=== PATIENT | male | born 1975 | race Caucasian/White ===

== ENCOUNTER 2016-10-04 11:50 | Observation (INO) | payer BC ==
[2016-10-04] MEDS ORDERED: SODIUM CHLORIDE 0.9% 1,000 ML IV STA ×2 (13:19)
[2016-10-04] MEDS ORDERED: RX INFO: IV CONTRAST WAS GIVEN 1 EACH MISC MISCELLANE PRN (13:20)
[2016-10-04] MEDS ORDERED: MORPHINE SULFATE 4 MG/ML SYRINGE IV STA (13:21)
[2016-10-04] MEDS ORDERED: METOCLOPRAMIDE 5 MG/ML 2 ML VIAL IVP STA (13:21)
--- NOTE | 2016-10-04 13:28 | ED ---
General Adult HPI - General Chief complaint: Dizziness Stated complaint: DIZZINESS X 1 WEEK, HEADACHE Time Seen by Provider: 10/04/16 13:00 Source: patient, RN notes reviewed Mode of arrival: wheelchair Limitations: no limitations - History of Present Illness Initial comments: Patient is a pleasant 41-year-old male presenting to the emergency Department with headaches. Headaches have gradually progressed over the past week. Headaches have been waxing and waning. Patient has had 2 or 3 syncopal episodes over the past couple of days. Patient has associated dizziness. Discomfort is somewhat severe at times. 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 Patient did previously have a pinched nerve in his neck that he saw a chiropractor for and that did seem to help. Patient no longer has neck discomfort. No history of similar symptoms previously. - Related Data Home Medications Medication Instructions Recorded Confirmed Melatonin 3 mg PO HS PRN 10/04/16 10/04/16 Omeprazole 20 mg PO DAILY 10/04/16 10/04/16 Allergies Allergy/AdvReac Type Severity Reaction Status Date / Time aspirin Allergy Rash/Hives Verified 10/04/16 12:54 Review of Systems ROS Statement: Those systems with pertinent positive or pertinent negative responses have been documented in the HPI. ROS Other: All systems not noted in ROS Statement are negative. Constitutional: Denies: fever Eyes: Reports: other (Chronic visual problems, unchanged). Denies: eye pain ENT: Denies: ear pain Respiratory: Denies: cough, dyspnea Cardiovascular: Denies: chest pain, palpitations Endocrine: Denies: fatigue Gastrointestinal: Reports: nausea. Denies: abdominal pain, vomiting Genitourinary: Denies: dysuria Musculoskeletal: Denies: back pain Skin: Denies: rash Neurological: Reports: headache. Denies: weakness, numbness, paresthesias, confusion Past Medical History Past Medical History: No Reported History History of Any Multi-Drug Resistant Organisms: None Reported Past Surgical History: No Surgical Hx Reported Additional Past Surgical History / Comment(s): orbital reconstruction pneumothorax with chest tube placement Past Psychological History: Depression Smoking Status: Current every day smoker Past Alcohol Use History: None Reported Past Drug Use History: None Reported General Exam Limitations: no limitations General appearance: alert, in no apparent distress Head exam: Present: atraumatic Eye exam: Present: normal appearance, PERRL, EOMI. Absent: nystagmus ENT exam: Present: normal oropharynx Neck exam: Present: normal inspection. Absent: tenderness Respiratory exam: Present: normal lung sounds bilaterally Cardiovascular Exam: Present: regular rate, normal rhythm Expanded Peripheral pulses: 2+: Radial (R), Radial (L), Dorsalis Pedis (R), Dorsalis Pedis (L) GI/Abdominal exam: Present: soft. Absent: tenderness Extremities exam: Present: normal inspection. Absent: tenderness, pedal edema, calf tenderness Neurological exam: Present: alert, oriented X3, CN II-XII intact. Absent: motor sensory deficit Expanded Speech: Present: fluid speech Cranial nerves: EOM's Intact: Normal, Facial Sensation: Normal Cerebellar function: Finger to Nose: Normal Sensory exam: Upper Extremity Light Touch: Normal, Lower Extremity Light Touch: Normal Motor strength exam: RUE: 5, LUE: 5, RLE: 5, LLE: 5 Eye Response: (4) open spontaneously Motor Response: (6) obeys commands Verbal Response: (5) oriented Psychiatric exam: Present: normal affect, normal mood Skin exam: Absent: rash Course Vital Signs 10/04/16 12:18 Temperature 98.0 F Pulse Rate 77 Respiratory 16 Rate Blood Pressure 106/70 O2 Sat by Pulse 98 Oximetry EKG Findings - EKG Comments: EKG Findings:: Normal sinus rhythm at 60. Normal intervals. Normal axis. Normal QRS. No acute ST change. Medical Decision Making - Medical Decision Making Patient reexamined and improved. Symptoms are mild at this time. Secondary to headache and syncope patient will be admitted for neurology consult. Case discussed in detail with Dr. Ji, who will admit for hospital call. - Lab Data Result diagrams: 10/04/16 12:45 10/04/16 12:45 Lab Results 10/04/16 10/04/16 10/04/16 Range/Units 12:45 12:45 12:45 WBC 7.7 (3.8-10.6) k/uL RBC 4.93 (4.30-5.90) m/uL Hgb 16.2 (13.0-17.5) gm/dL Hct 48.5 (39.0-53.0) % MCV 98.4 (80.0-100.0) fL MCH 32.9 (25.0-35.0) pg MCHC 33.5 (31.0-37.0) g/dL RDW 12.3 (11.5-15.5) % Plt Count 220 (150-450) k/uL Neutrophils % 69 % Lymphocytes % 20 % Monocytes % 6 % Eosinophils % 3 % Basophils % 1 % Neutrophils # 5.3 (1.3-7.7) k/uL Lymphocytes # 1.5 (1.0-4.8) k/uL Monocytes # 0.4 (0-1.0) k/uL Eosinophils # 0.3 (0-0.7) k/uL Basophils # 0.1 (0-0.2) k/uL PT (9.0-12.0) sec INR (<1.1) APTT (22.0-30.0) sec Sodium 144 (137-145) mmol/L Potassium 4.8 (3.5-5.1) mmol/L Chloride 104 (98-107) mmol/L Carbon Dioxide 28 (22-30) mmol/L Anion Gap 12 mmol/L BUN 12 (9-20) mg/dL Creatinine 0.84 (0.66-1.25) mg/dL Est GFR (MDRD) Af Amer >60 (>60 ml/min/1.73 sqM) Est GFR (MDRD) Non-Af >60 (>60 ml/min/1.73 sqM) Glucose 84 (74-99) mg/dL Calcium 9.6 (8.4-10.2) mg/dL Magnesium 2.0 (1.6-2.3) mg/dL Total Bilirubin 0.5 (0.2-1.3) mg/dL AST 24 (17-59) U/L ALT 40 (21-72) U/L Alkaline Phosphatase 68 (38-126) U/L Total Creatine Kinase 60 (55-170) U/L CK-MB (CK-2) 0.4 (0.0-2.4) ng/mL CK-MB (CK-2) Rel Index 0.7 Troponin I <0.012 (0.000-0.034) ng/mL Total Protein 6.9 (6.3-8.2) g/dL Albumin 4.3 (3.5-5.0) g/dL Urine Color Urine Appearance (Clear) Urine pH (5.0-8.0) Ur Specific Chester (1.001-1.035) Urine Protein (Negative) Urine Glucose (UA) (Negative) Urine Ketones (Negative) Urine Blood (Negative) Urine Nitrate (Negative) Urine Bilirubin (Negative) Urine Urobilinogen (<2.0) mg/dL Ur Leukocyte Esterase (Negative) 10/04/16 10/04/16 Range/Units 12:45 14:35 WBC (3.8-10.6) k/uL RBC (4.30-5.90) m/uL Hgb (13.0-17.5) gm/dL Hct (39.0-53.0) % MCV (80.0-100.0) fL MCH (25.0-35.0) pg MCHC (31.0-37.0) g/dL RDW (11.5-15.5) % Plt Count (150-450) k/uL Neutrophils % % Lymphocytes % % Monocytes % % Eosinophils % % Basophils % % Neutrophils # (1.3-7.7) k/uL Lymphocytes # (1.0-4.8) k/uL Monocytes # (0-1.0) k/uL Eosinophils # (0-0.7) k/uL Basophils # (0-0.2) k/uL PT 10.0 (9.0-12.0) sec INR 1.0 (<1.1) APTT 24.9 (22.0-30.0) sec Sodium (137-145) mmol/L Potassium (3.5-5.1) mmol/L Chloride (98-107) mmol/L Carbon Dioxide (22-30) mmol/L Anion Gap mmol/L BUN (9-20) mg/dL Creatinine (0.66-1.25) mg/dL Est GFR (MDRD) Af Amer (>60 ml/min/1.73 sqM) Est GFR (MDRD) Non-Af (>60 ml/min/1.73 sqM) Glucose (74-99) mg/dL Calcium (8.4-10.2) mg/dL Magnesium (1.6-2.3) mg/dL Total Bilirubin (0.2-1.3) mg/dL AST (17-59) U/L ALT (21-72) U/L Alkaline Phosphatase (38-126) U/L Total Creatine Kinase (55-170) U/L CK-MB (CK-2) (0.0-2.4) ng/mL CK-MB (CK-2) Rel Index Troponin I (0.000-0.034) ng/mL Total Protein (6.3-8.2) g/dL Albumin (3.5-5.0) g/dL Urine Color Light Yellow Urine Appearance Clear (Clear) Urine pH 7.0 (5.0-8.0) Ur Specific [place] >1.050 H (1.001-1.035) Urine Protein Trace H (Negative) Urine Glucose (UA) Negative (Negative) Urine Ketones Negative (Negative) Urine Blood Negative (Negative) Urine Nitrate Negative (Negative) Urine Bilirubin Negative (Negative) Urine Urobilinogen <2.0 (<2.0) mg/dL Ur Leukocyte Esterase Negative (Negative) - Radiology Data Radiology results: image reviewed (Computed tomography scan of the brain shows old fractures right orbit. No acute abnormality. CTA of the brain and neck show no acute abdomen Dontae. Chest x-ray shows bronchitis vs asthma. No acute infiltrate.) Disposition Clinical Impression: Syncope, Headache Disposition: ADMITTED IP TO THIS HOSP
[2016-10-04 13:42] LABS: Basophils # (A) 0.1 k/uL (0-0.2); Basophils % (A) 1 %; CH 33.6; CHCM 34.3; Eosinophils # (A) 0.3 k/uL (0-0.7); Eosinophils % (A) 3 %; HCT 48.5 % (39.0-53.0); HGB 16.2 gm/dL (13.0-17.5); Luc # (Auto) 0.14; Luc % (Auto) 2; Lymphocytes # (A) 1.5 k/uL (1.0-4.8); Lymphocytes % (A) 20 %; MCH 32.9 pg (25.0-35.0); MCHC 33.5 g/dL (31.0-37.0); MCV 98.4 fL (80.0-100.0); Mean Platelet Volume 6.6; Monocytes # (A) 0.4 k/uL (0-1.0); Monocytes % (A) 6 %; Neutrophils # (A) 5.3 k/uL (1.3-7.7); Neutrophils % (A) 69 %; RBC 4.93 m/uL (4.30-5.90); RDW 12.3 % (11.5-15.5); WBC 7.7 k/uL (3.8-10.6)
[2016-10-04 13:47] LABS: Partial Thromboplastin Time 24.9 sec (22.0-30.0)
[2016-10-04 13:52] LABS: ALT 40 U/L (21-72); AST 24 U/L (17-59); Alkaline Phosphatase 68 U/L (38-126); Anion Gap 12 mmol/L; Blood Urea Nitrogen 12 mg/dL (9-20); Calcium 9.6 mg/dL (8.4-10.2); Carbon Dioxide 28 mmol/L (22-30); Chloride 104 mmol/L (98-107); Glucose 84 mg/dL (74-99); Non-African American GFR(MDRD) >60 (>60 ml/min/1.73 sqM); Potassium 4.8 mmol/L (3.5-5.1); Sodium 144 mmol/L (137-145); Total Bilirubin 0.5 mg/dL (0.2-1.3); Total Protein 6.9 g/dL (6.3-8.2)
[2016-10-04 14:01] LABS: Creatine Kinase 60 U/L (55-170)
[2016-10-04 14:12] LABS: Creatine Kinase MB 0.4 ng/mL (0.0-2.4); Troponin I <0.012 ng/mL (0.000-0.034)
--- NOTE | 2016-10-04 14:13 | XR ---
EXAMINATION TYPE: XR chest 2V DATE OF EXAM: 10/04/2016 2:09 PM COMPARISON: None HISTORY: 41-year-old male with syncope and dizziness today TECHNIQUE: PA and lateral views FINDINGS: The cardiomediastinal silhouette, aorta, and pulmonary vasculature are within normal limits. There is pectus excavatum deformity. Mild peribronchial cuffing is noted. Otherwise, lungs and pleural spaces are clear. IMPRESSION: Peribronchial cuffing could represent bronchitis or chronic asthma. Otherwise, no acute process.
--- NOTE | 2016-10-04 14:39 | CT ---
EXAMINATION TYPE: CT brain wo con DATE OF EXAM: 10/04/2016 2:22 PM COMPARISON: 05/25/2011 HISTORY: 41-year-old male with syncope TECHNIQUE: Examination was done in axial plane without intravenous contrast. Coronal and sagittal reconstructio ns performed. CT DLP: 1111 mGycm Automated exposure control for dose reduction was used. FINDINGS: There is no evidence of acute intracranial hemorrhage, acute ischemic changes, mass, mass-effect, or extra-axial fluid collection. There is no effacement of cerebral sulci or basal subarachnoid cister ns. There is no hydrocephalus. There is no midline shift. Mei-white matter distinction is preserv ed. Old blowout fractures right orbit and additional chronic fractures posterior wall right maxillary sin us. IMPRESSION: No acute intracranial abnormality seen. Old trauma to the right orbit and right maxillary sinus.
--- NOTE | 2016-10-04 14:46 | CT ---
EXAMINATION TYPE: CT angio head neck DATE OF EXAM: 10/04/2016 2:37 PM COMPARISON: NONE HISTORY: 41-year-old male with syncope and headache, with dizziness CT DLP: 397.69 mGycm Automated exposure control for dose reduction was used. TECHNIQUE: CT of the head and neck performed with IV Contrast, patient injected with 65 ml mL of Omni paque 350. Coronal and sagittal reconstructions performed. 3-D reconstructions generated on a [employer] workstation. FINDINGS: NECK: Pleural parenchymal scarring at the apices and blebs. There is early takeoff of the left vertebral artery from the left subclavian artery. The left vertebr al artery is dominant and both vessels are patent throughout their course. Both common carotid arteries are patent. Both internal carotid arteries are widely patent. Head: The large intracranial vessels including the vertebral arteries, basilar arteries, and internal carot id arteries are patent. Both anterior and posterior circulations are patent. No aneurysmal changes identified. Dural venous sinuses appear patent. IMPRESSION: 1. NO CAROTID OR VERTEBRAL ARTERY STENOSIS. 2. NO LARGE VESSEL INTRACRANIAL ARTERIAL OCCLUSION, SIGNIFICANT STENOSIS, OR ANEURYSMAL CHANGE SEEN.
[2016-10-04 14:48] LABS: Appearance,Urine Clear (Clear); Bilirubin,Urine Negative (Negative); Glucose,Urine (UA) Negative (Negative); Ketones,Urine Negative (Negative); Leukocyte Esterase,Urine Negative (Negative); Nitrite,Urine Negative (Negative); Protein,Urine Trace (Negative); UA Billing (MACRO vs. MICRO) CHEM; Urobilinogen,Urine <2.0 mg/dL (<2.0)
[2016-10-04 14:59] LABS: Specific Gravity,Urine >1.050 (1.001-1.035)
[2016-10-04] MEDS ORDERED: NALOXONE 0.4 MG/ML 1 ML VIAL IV PRN (15:04)
[2016-10-04] MEDS: SODIUM CHLORIDE 0.9% 1,000 ML IV SCH (15:20)
[2016-10-04 17:11] VITALS: BMI 19.5
[2016-10-04] MEDS: ONDANSETRON 4 MG/2 ML VIAL IVP PRN (17:13)
[2016-10-04] MEDS: MORPHINE SULFATE 4 MG/ML SYRINGE IV PRN (19:50)
[2016-10-04] MEDS ORDERED: MELATONIN 3 MG TABLET PO PRN (21:11)
[2016-10-04] MEDS: NICOTINE 21MG/24HR PATCH TRANSDERM SCH (22:22)
[2016-10-04] MEDS: PANTOPRAZOLE 40 MG TABLET PO SCH (22:22)
[2016-10-05] MEDS: SODIUM CHLORIDE 0.9% 1,000 ML IV SCH ×2 (05:41→18:16)
[2016-10-05] MEDS: NICOTINE 21MG/24HR PATCH TRANSDERM SCH (09:54)
[2016-10-05] MEDS: PANTOPRAZOLE 40 MG TABLET PO SCH (09:54)
[2016-10-05] MEDS: MORPHINE SULFATE 4 MG/ML SYRINGE IV PRN (09:58)
[2016-10-05] MEDS: ONDANSETRON 4 MG/2 ML VIAL IVP PRN (10:00)
[2016-10-05 12:06] LABS: Glucose,Whole Blood 83 mg/dL (75-99)
[2016-10-05] MEDS: HYDROmorphone 1 MG/ML 1 ML SYRINGE IVP PRN (15:28)
[2016-10-05] MEDS ORDERED: ONDANSETRON 4 MG/2 ML VIAL IVP PRN (16:40)
--- NOTE | 2016-10-05 17:51 | MR ---
Brain MRI with and without contrast HISTORY: Headache and syncope Multiplanar multisequence and postcontrast images through the brain following 13 cc MultiHance IV. Correlation to CT brain second of October 2016 There is no restricted diffusion. No abnormal enhancement following contrast administration. The anisa us callosum, pituitary, and cervical medullary junction, cerebellopontine angles are normal. Posterio r orbit on the right shows abnormal configuration as noted on CT likely due to remote trauma. Scatter ed hyperintensities are present in the periventricular and subcortical white matter on inversion ant very and T2-weighted sequences, there are approximately 20-30 lesions present. IMPRESSION: Nonspecific white matter demyelination, correlate for migraine headaches, vasculitis, hyp ertension, multiple sclerosis in the appropriate clinical setting.
[2016-10-05] MEDS ORDERED: PROCHLORPERAZINE 10 MG TAB PO PRN (18:33)
--- NOTE | 2016-10-05 18:48 | P.CNNES ---
History of Present Illness Consult date: 10/05/16 Reason for Consult: Patient with headaches and syncope History of Present Illness: This patient is a 41-year-old right-handed white male who was admitted to the hospital with symptoms of severe headache and recent syncopal episodes. Patient was brought into the emergency room yesterday evening with symptoms of severe headache and recent syncopal episode at home. Patient apparently has been having increased symptoms of headaches involving both temporal and occipital regions of the head and neck region. The headaches were severe and this was one of his reasons to come to the emergency room yesterday. The headaches have been ongoing for the last week or so. He also has been having intermittent dizziness and vertigo. He states that the room spins around and he feels very off balance. According to his who was at bedside he had an episode in which she felt lightheaded and dizzy and near passing out but did not actually collapse. Apparently the patient himself describes 2-3 blackout spells. He had no warning and apparently fell to the ground with these episodes. The patient does have a history of having had right orbital surgery done years ago at [facility]. According to the patient a plastic plate was inserted. The patient was seen in the ER by Dr. Richards. He was sent for computed tomography scan of the brain which did show old fractures of the right orbit. No acute abnormality was noted on the CAT scan. There was old trauma to the right orbit and right maxillary sinus noted. The patient also underwent a CTA angiogram. This came back negative for any evidence of arterial stenosis and no evidence of aneurysm. The patient was fully admitted to the hospital. He was sent for MRI of the brain today. MRI of the brain fails to reveal any evidence of acute enhancing brain lesions or tumor. MRI does show some nonspecific white matter changes which may be related to vascular migraine headaches. The patient states he has been receiving some pain medication which does help but still has recurrent headache. 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 Patient states that he is still quite dizzy even when he ambulates to the bathroom. He does require holding onto the eubanks at times. He states that when he is laying in bed he still feels the room spins around and he does become vertiginous. He does experience nausea and vomiting symptoms with these spells as well. The patient has no previous history of seizures or previous syncopal episodes. He did undergo routine EEG today which was reviewed and is negative for any evidence of epileptic seizures. We reviewed the results of all of his neurological testing today with the patient. His clinical history suggesting may have a degree of vestibular neuronitis. We are recommending he be started on Antivert as well for this condition and monitor his response. Patient is now admitted and neurology has been consulted for further evaluation and recommendations. Review of Systems Constitutional: Denies chills, Denies fever Eyes: denies blurred vision, denies pain Ears, nose, mouth and throat: Reports vertigo, Denies headache, Denies sore throat Cardiovascular: Denies chest pain, Denies shortness of breath Respiratory: Denies cough Gastrointestinal: Denies abdominal pain, Denies diarrhea, Denies nausea, Denies vomiting Musculoskeletal: Denies myalgias Integumentary: Denies pruritus, Denies rash Neurological: Reports gait dysfunction, Reports headaches, Reports vertigo, Denies numbness, Denies weakness Psychiatric: Denies anxiety, Denies depression Endocrine: Denies fatigue, Denies weight change Past Medical History Past Medical History: No Reported History History of Any Multi-Drug Resistant Organisms: None Reported Past Surgical History: No Surgical Hx Reported Additional Past Surgical History / Comment(s): orbital reconstruction, pneumothorax with chest tube placement Past Anesthesia/Blood Transfusion Reactions: No Reported Reaction Past Psychological History: Depression Smoking Status: Current every day smoker Past Alcohol Use History: None Reported Past Drug Use History: None Reported, Marijuana Additional Drug Use History / Comment(s): pt has medical marijuana card. - Past Family History Mother Family Medical History: No Reported History Medications and Allergies Home Medications Medication Instructions Recorded Confirmed Type Melatonin 3 mg PO HS PRN 10/04/16 10/04/16 History Omeprazole 20 mg PO DAILY 10/04/16 10/04/16 History Allergies Allergy/AdvReac Type Severity Reaction Status Date / Time aspirin Allergy Rash/Hives Verified 10/04/16 12:54 Physical Examination - Vital Signs Vital Signs: Vital Signs Temp Pulse Pulse Pulse Resp BP BP 10/05/16 07:54 98.5 F 54 L 18 99/52 10/05/16 04:00 56 L 16 95/49 10/05/16 03:59 66 16 10/05/16 00:00 98.5 F 58 L 60 16 94/50 10/04/16 20:00 98 F 60 16 92/52 10/04/16 16:50 98.2 F 63 16 94/53 10/04/16 15:35 98.2 F 76 18 116/66 Pulse Ox 10/05/16 07:54 96 10/05/16 04:00 97 10/05/16 03:59 10/05/16 00:00 97 10/04/16 20:00 99 10/04/16 16:50 98 10/04/16 15:35 99 Intake and Output 10/04/16 10/05/16 10/05/16 22:59 06:59 14:59 Intake Total 118 1300 Balance 118 1300 Intake: IV 900 Sodium Chloride 0.9% 1, 900 000 ml @ 75 mls/hr IV . [id number] RADHA Rx#:[id number] Oral 118 400 Other: # Voids 4 1 Weight 63.503 kg - Constitutional General appearance: average body habitus - EENT EENT: PERRL, mucous membranes moist - Respiratory Respiratory: lungs clear, normal breath sounds - Cardiovascular Cardiovascular: regular rate, normal S1, normal S2 Extremities: no peripheral edema bilaterally - Gastrointestinal Gastrointestinal: normoactive bowel sounds - Integumentary Integumentary: normal - Neurologic Cranial nerve examination: PERRL, EOMI, VFF, V1/V2/V3 grossly intact, face symmetric, tongue midline, intact gag reflex, intact corneal reflex, normal palatal elevation Speech examination: intact Sensorimotor examination: intact Detailed motor examination: grossly full strength in all extremities Motor examination - right side: 5/5: biceps, triceps, wrist flexion, wrist extension, carpet cutter, hip flexors, knee extensors, dorsiflexion, toe extension (EHL) , plantarflexion Motor examination - left side: 5/5: biceps, triceps, wrist flexion, wrist extension, carpet cutter, hip flexors, knee extensors, dorsiflexion, toe extension (EHL) , plantarflexion Detailed sensory examination: intact Reflex and gait examination: intact Reflexes: 1+: ankle, bicep, knee, tricep - Musculoskeletal Musculoskeletal: no pain - Psychiatric Psychiatric: mood/affect appropriate, cooperative Results - Laboratory Findings CBC and BMP: 10/04/16 12:45 10/04/16 12:45 Assessment and Plan (1) Vestibular neuronitis Status: Acute Code(s): H81.20 - VESTIBULAR NEURONITIS, UNSPECIFIED EAR (2) Near syncope Status: Acute Code(s): R55 - SYNCOPE AND COLLAPSE (3) Recurrent headache Status: Acute Code(s): R51 - HEADACHE (4) Closed blow-out fracture of right orbit Status: Acute Code(s): S02.31XA - FRACTURE OF ORBITAL FLOOR, RIGHT SIDE, INIT Plan: This patient is a 41-year-old male initially admitted to Hospital yesterday with symptoms of dizziness and headache. He was seen in the emergency room by Dr. Richards. He underwent a computed tomography scan of the brain as well as a CTA angiogram. CAT scan of the brain revealed no acute intracranial abnormality. There was evidence of an old right orbital fracture and right maxillary sinusitis. He suffers only had a CTA angiogram which came back negative for any evidence of arterial occlusion or aneurysm. He was started on some analgesic pain medication admitted to Hospital. Today he underwent a routine EEG as he had symptoms of recurrent syncope. EEG was reviewed and is normal with no evidence of epileptic seizure focus. He underwent MRI of the brain with and without contrast which came back negative for any enhancing lesions. Nonspecific white matter ischemic changes were noted. The patient has symptoms suggesting vestibular neuronitis as a cause of his dizziness. His headache etiology is unclear at this time. We would recommend starting the patient on Antivert for further management of the neuronitis with close monitoring. His neurological examination is nonfocal at this time. We will continue close neurological follow-up with the patient. All of his test results were discussed with the patient today in detail. We will continue to monitor his progress closely during this admission. Time with Patient: Greater than 30
[2016-10-05] MEDS: MECLIZINE 12.5 MG TAB PO SCH ×2 (18:55→22:02)
[2016-10-05] MEDS: KETOROLAC 30 MG/ML 1 ML VIAL IVP SCH (18:55)
[2016-10-06] MEDS: KETOROLAC 30 MG/ML 1 ML VIAL IVP SCH ×4 (04:17→18:20)
--- NOTE | 2016-10-06 05:04 | EEG ---
DATE OF SERVICE: 10/05/2016 INDICATIONS FOR EXAMINATION: This patient is a 41-year-old male being evaluated for syncope and headaches. The patient with recurrent syncopal episodes on admission. AGE: 41Y EEG FINDINGS: A routine 21-channel, awake digital EEG recording was accomplished utilizing the 10 to 20 international system with bipolar and referential montages. The background activity in the most alert resting state consists of a low to medium amplitude, fairly well-developed and well-sustained 7 to 8 Hz activity over the posterior head regions. This posterior rhythm attenuates to eye opening. There is a small amount of low amplitude 18 to 20 Hz beta activity seen maximally over the anterior head regions. Muscle and movement artifact was observed on a few occasions during the tracing. Hyperventilation was not performed. Photic stimulation at flash frequencies of 2 to 30 Hz produced a good symmetrical occipital driving response. No epileptiform discharges were seen. IMPRESSION: This EEG is within normal limits for the patient's age. The EEG failed to reveal any focal, lateralized or epileptiform abnormalities. Clinical correlation is recommended.
--- NOTE | 2016-10-06 06:44 | HP ---
DATE OF ADMISSION: Chief complaint is headache and dizziness and lightheadedness and blacking out. HISTORY OF PRESENT ILLNESS: Mr. Chatman is a 41-year-old male with no significant past medical history except orbital reconstruction several years ago on the right side with closed head injury came to the hospital with complaints of headache and dizziness and blacking out for the past 2 weeks. Patient has waxing and waning symptoms of headache, along with dizziness and lightheadedness and suddenly black outs for a few seconds. The patient went to see a chiropractor and was told that patient had neck arthritis. The patient has been having these neck problems since July 2016. Apparently, his symptoms improved with pain management and started going to work and since for the past 2 weeks he has been having headache and dizziness and syncopal episodes. Denied any fall. Patient also complains of right arm numbness and tingling sometimes and sensation of ( ) on the fingers and radiating up towards the upper arm on the right side. Patient does have associated nausea and vomiting. Patient was also told that he has ankylosing spondylitis. The patient said that he does have spotty and blurred vision as spinning of the room. Otherwise, the patient is currently being treated with pain medications and ( ) for nausea and vomiting. Neurology has been consulted for further evaluation. REVIEW OF SYSTEMS: CONSTITUTIONAL: No fever. No chills. No weakness, malaise. RESPIRATORY: No cough or sputum production. CARDIOVASCULAR: No chest pain or shortness of breath. NEUROLOGIC: Patient does have numbness and tingling in arm and headache and dizziness. At present, no focal weakness. ABDOMEN: No nausea, vomiting or abdominal pain. GENITOURINARY: Negative. ENDOCRINE: Negative. PSYCHIATRIC: Negative. SKIN: Negative. All other 14-point review of systems negative except as the above. PAST MEDICAL HISTORY: Closed head injury with right orbital fracture. PAST SURGICAL HISTORY: Right orbital reconstruction, pneumothorax with chest tube placement. SOCIAL HISTORY: Patient is currently an everyday smoker. Denied any alcohol. Denied any drugs or IVDU. FAMILY HISTORY: Denied any history of hypertension, diabetes mellitus or premature heart disease in the family. ALLERGIES: Allergic to ASPIRIN. HOME MEDICATIONS: 1. Melatonin. 2. Omeprazole. PHYSICAL EXAMINATION: A 41-year-old male lying on the bed. Awake, alert, oriented x3. Appears to be in no apparent distress. VITALS: Blood pressure is 96/65, pulse is 64, respiration 18, pulse ox is 96% on room air. HEENT: Atraumatic, normocephalic. Neck is supple. No JVD. CVS: S1, S2 heard. No murmurs. No gallops. LUNGS: Bilateral air entry is present. No wheezing. No crackles. ABDOMEN: Soft, nontender. Bowel sounds present. SOAP GRINDER: Awake, alert and oriented x3. No focal neurologic deficits. Cranial nerves grossly intact. EXTREMITIES: No edema. Pulses palpable bilaterally. No clubbing or cyanosis. PSYCHIATRIC: Cooperative. LABORATORY DATA: WBC 7.7, hemoglobin 16.2, platelets are 220. INR 1.0. Sodium 144, potassium 4.8, chloride 104, bicarb is 28, BUN 12, creatinine 0.84. Liver enzymes within normal limits. Albumin 4.3. UA negative for infection. CT angiogram, no carotid or vertebral artery stenosis. No large vessel intracranial arterial occlusion, significant stenosis or aneurysmal changes seen. CT brain, no acute intracranial abnormality seen; old trauma to the right orbit and right maxillary sinus. Chest x-ray, ( ) cuffing could represent bronchitis or chronic asthma. EKG normal sinus rhythm. MRI scan of the brain nonspecific white matter demyelination, correlate for migraine headaches, vasculitis, hypertension, multiple sclerosis in appropriate clinical setting IMPRESSION: 1. Headache, dizziness and spinning of the room, possible vestibular neuronitis. The patient was seen by neurology and the recommendations the patient will be started on Antivert. EEG is also reviewed by neurology and no evidence of epileptic focus. 2. Intractable headache and dizziness and syncopal episode secondary to above. 3. History of right orbital fracture with closed head injury, status post reconstructive surgery. 4. History of pneumothorax with chest tube placement in the past. 5. Nicotine addiction. DISCUSSION AND PLAN: A 41-year-old male admitted to the hospital with worsening headache, dizziness and lightheadedness and syncopal episodes. Will continue symptomatic treatment for headache with Toradol and Compazine and Dilaudid p.r.n. Patient will be started on Antivert as per neurology recommendations and follow up closely in the hospital. Further recommendations based on the clinical course.
[2016-10-06] MEDS: MECLIZINE 12.5 MG TAB PO SCH ×3 (08:03→21:16)
[2016-10-06] MEDS: PANTOPRAZOLE 40 MG TABLET PO SCH (08:03)
[2016-10-06] MEDS: NICOTINE 21MG/24HR PATCH TRANSDERM SCH (08:04)
[2016-10-06] MEDS: SODIUM CHLORIDE 0.9% 1,000 ML IV SCH (08:04)
[2016-10-06] MEDS ORDERED: methylPREDNISolone SOD SUCCI 125 MG/2 ML VIAL IV STA (14:34)
[2016-10-06] MEDS: HYDROmorphone 1 MG/ML 1 ML SYRINGE IVP PRN ×2 (15:44→21:19)
--- NOTE | 2016-10-06 20:54 | P.PN ---
Subjective Patient is 41 year old admitted with vertigo and headaches. Patient has been evaluated with routine EEG which was reviewed and is normal for his age. There is no evidence of any acute seizure focus. He continues to have symptoms of dizziness and is currently on meclizine. We have consult did ENT for further evaluation of his vertigo. Patient underwent MRI of the brain which revealed nonspecific white matter changes. No evidence of acute stroke was noted on this MRI of the brain. The patient does require pain medications for treatment of his headache. Etiology is still unclear. May consider increasing dose of meclizine to 25 mg 3 times a day if the patient tolerates. We will continue close neurological follow-up for the patient. His overall prognosis remains guarded. Objective - Vital Signs Vital signs: Vital Signs Temp 97.5 F L 10/06/16 12:00 Pulse 63 10/06/16 12:00 Resp 16 10/06/16 12:00 BP 105/59 10/06/16 12:00 Pulse Ox 98 10/06/16 12:00 Intake & Output 10/05/16 10/06/16 10/06/16 18:59 06:59 18:59 Intake Total 0 358 Balance 0 358 Intake: Oral 0 358 Other: Voiding Method Toilet Toilet Toilet # Voids 1 1 - Exam Physical examination: PHYSICAL EXAMINATION: Patient is resting comfortably in bed. VITAL SIGNS: Blood pressure is [128/70]. Heart rate is [68]. Respiration is [16] . Temperature is [98.8]. HEENT: Head is atraumatic, neck is supple, there were no carotid bruits. CHEST: Lungs are clear to auscultation and percussion. CARDIAC: S1, S2 normal rate and rhythm. There is no murmur. ABDOMEN: Soft and nontender. Bowel sounds are present. EXTREMITIES: There is no pedal edema. Peripheral pulses are present. Neurological examination: Patient's neurological examination unchanged from yesterday. - Labs CBC & Chem 7: 10/04/16 12:45 10/04/16 12:45 Assessment and Plan (1) Vestibular neuronitis Status: Acute Code(s): H81.20 - VESTIBULAR NEURONITIS, UNSPECIFIED EAR (2) Near syncope Status: Acute Code(s): R55 - SYNCOPE AND COLLAPSE (3) Recurrent headache Status: Acute Code(s): R51 - HEADACHE (4) Closed blow-out fracture of right orbit Status: Acute Code(s): S02.31XA - FRACTURE OF ORBITAL FLOOR, RIGHT SIDE, INIT Plan: This patient is a 41-year-old male initially admitted to Hospital yesterday with symptoms of dizziness and headache. He was seen in the emergency room by Dr. Richards. He underwent a computed tomography scan of the brain as well as a CTA angiogram. CAT scan of the brain revealed no acute intracranial abnormality. There was evidence of an old right orbital fracture and right maxillary sinusitis. He suffers only had a CTA angiogram which came back negative for any evidence of arterial occlusion or aneurysm. He was started on some analgesic pain medication admitted to Hospital. Today he underwent a routine EEG as he had symptoms of recurrent syncope. EEG was reviewed and is normal with no evidence of epileptic seizure focus. He underwent MRI of the brain with and without contrast which came back negative for any enhancing lesions. Nonspecific white matter ischemic changes were noted. The patient has symptoms suggesting vestibular neuronitis as a cause of his dizziness. His headache etiology is unclear at this time. We would recommend starting the patient on Antivert for further management of the neuronitis with close monitoring. His neurological examination is nonfocal at this time. We will await further evaluation from ENT regarding his vertigo. In the meantime he is to continue on his current dose of Antivert. We will continue close neurological follow-up with the patient. All of his test results were discussed with the patient today in detail. We will continue to monitor his progress closely during this admission.
[2016-10-06] MEDS ORDERED: DIAZEPAM 5 MG TAB PO PRN (23:11)
--- NOTE | 2016-10-06 23:17 | P.PN ---
Subjective Principal diagnosis: Dizziness 41-year-old gentleman is admitted to the hospital with sudden onset dizziness over week ago. The dizziness is intermittent in nature which is exacerbated with movements of the head. Patient denies having any upper respiratory type of symptoms prior to admission. Patient does complain of a headache that has been severe in nature. Patient complains of change in vision however it has been chronic. Patient has had a previous history of a right orbital fracture after a trauma and underwent reconstruction. Patient has had some change in vision since then. Today patient status symptoms are slightly improved. Is more positional and denies having associated worsening in vision or any weakness or numbness. Patient underwent MRI of the brain which noted some nonspecific white matter changes. Objective - Vital Signs Vital signs: Vital Signs Temp 98.8 F 10/06/16 20:00 Pulse 68 10/06/16 20:00 Resp 16 10/06/16 20:00 BP 128/70 10/06/16 20:00 Pulse Ox 97 10/06/16 20:00 Intake & Output 10/06/16 10/06/16 10/07/16 06:59 18:59 06:59 Intake Total 358 Balance 358 Intake: Oral 358 Other: Voiding Method Toilet Toilet # Voids 1 - Exam Physical exam Abdomen soft nontender no organomegaly Heart S1 and S2 heart regular rate and rhythm no murmurs appreciated Lungs good air entry clear to auscultation Neuro no focal motor or sensory deficits noted. Cranial nerves II-12 intact. Reproducible vertigo on head movements. No nystagmus appreciated. Strength is 5 out of 5 in all extremities General in no acute distress alert oriented 3 - Labs CBC & Chem 7: 10/04/16 12:45 10/04/16 12:45 Assessment and Plan Plan: #1 peripheral vertigo secondary to vestibular neuronitis #2 nonspecific headaches unknown etiology #3 history of right orbital fracture #4 history of a previous maxillary fracture #5 poor peripheral vision PLAN Continue ongoing care. Patient will be given a dose of Solu-Medrol 125 mg. Continue Antivert. Patient will also be started on Valium 5 mg 3 times a day. This has shown to improve symptoms in patient's with neuronitis. This should only be continued for 5-7 days. Neurology recommendations were noted. Did recommend a ENT consultation. Patient can be seen on an outpatient basis Patient will be discharged home likely in the next 24 hours. White matter changes on MRI are nonspecific and does not fit with the current symptomatology.
[2016-10-07] MEDS: KETOROLAC 30 MG/ML 1 ML VIAL IVP SCH ×3 (01:00→12:13)
[2016-10-07 07:58] VITALS: TEMP 97.7
[2016-10-07] MEDS: PANTOPRAZOLE 40 MG TABLET PO SCH (08:04)
[2016-10-07] MEDS: NICOTINE 21MG/24HR PATCH TRANSDERM SCH (08:04)
[2016-10-07] MEDS: MECLIZINE 12.5 MG TAB PO SCH ×2 (08:04→16:04)
[2016-10-07] MEDS: HYDROmorphone 1 MG/ML 1 ML SYRINGE IVP PRN ×2 (09:10→16:04)
[2016-10-07 12:04] VITALS: BP 110/57; PULSE 89; RESP 16
--- NOTE | 2016-10-07 15:22 | P.PN ---
Subjective This patient is a 41-year-old ring and white male who was initially admitted hospital with symptoms of acute vertigo and lightheadedness. Patient was admitted through the emergency room and initially had undergone a computed tomography scan of the brain as well as a CTA angiogram. Both studies came back negative for any acute abnormalities. He was admitted to hospital and started on meclizine for treatment of acute vertigo. ENT was consult that however they are recommending that he be followed up in the outpatient ENT clinic upon discharge. We've reviewed these reports today with the patient in detail. Patient was sent for MRI of the brain on 10/05/2016. MRI revealed nonspecific white matter changes. The actual MRI films were reviewed today with the radiologist. The findings are nonspecific and not typical of findings for multiple sclerosis. We reviewed this today with the patient and his at bedside. The patient states his vertigo has improved since initial presentation to the hospital. He is continues to have headaches etiology of which is still unclear. He was given a dose of steroid therapy yesterday which did seem to help. We have suggested the patient may begin a trial of a Medrol Dosepak and Fiorcet as needed at the time of discharge. He is also concerned in regards to his FMLA papers which will need to be filled out by the admitting physician. We reviewed all of the test results with the patient and his at bedside today. All their questions were answered. He may follow-up in the outpatient neurology clinic in 3-4 weeks as needed. Objective - Vital Signs Vital signs: Vital Signs Temp 97.7 F 10/07/16 07:20 Pulse 89 10/07/16 12:00 Resp 16 10/07/16 12:00 BP 110/57 10/07/16 12:00 Pulse Ox 97 10/07/16 12:00 Intake & Output 10/06/16 10/07/16 10/07/16 18:59 06:59 18:59 Intake Total 358 200 Balance 358 200 Intake: Oral 358 200 Other: Voiding Method Toilet Toilet Toilet - Exam Physical examination: PHYSICAL EXAMINATION: Patient is resting comfortably in bed. VITAL SIGNS: Blood pressure is [110/57]. Heart rate is [89]. Respiration is [16] . Temperature is [97.7]. HEENT: Head is atraumatic, neck is supple, there were no carotid bruits. CHEST: Lungs are clear to auscultation and percussion. CARDIAC: S1, S2 normal rate and rhythm. There is no murmur. ABDOMEN: Soft and nontender. Bowel sounds are present. EXTREMITIES: There is no pedal edema. Peripheral pulses are present. Neurological examination: Patient's neurological examination unchanged from yesterday. His dizziness symptoms have improved. He continues to have mild to moderate degree of bifrontal lateral headache. His neurological examination is nonfocal at this time. - Labs CBC & Chem 7: 10/04/16 12:45 10/04/16 12:45 Assessment and Plan (1) Vestibular neuronitis Status: Acute Code(s): H81.20 - VESTIBULAR NEURONITIS, UNSPECIFIED EAR (2) Near syncope Status: Acute Code(s): R55 - SYNCOPE AND COLLAPSE (3) Recurrent headache Status: Acute Code(s): R51 - HEADACHE (4) Closed blow-out fracture of right orbit Status: Acute Code(s): S02.31XA - FRACTURE OF ORBITAL FLOOR, RIGHT SIDE, INIT Plan: this patient is a 41-year-old male who was initially admitted hospital with symptoms of severe headache and dizziness. He underwent an initial computed tomography scan and CTA angiogram both of which came back negative. He was actually admitted to the hospital. He underwent MRI of the brain on 10/05/2016 which was reviewed with the patient today in detail. There is no evidence of acute stroke or hemorrhage. There was nonspecific white matter changes noted. This was reviewed with the radiologist today and the appearance of this MRI is not typical for MS. We will have the patient follow-up with ENT in the outpatient clinic. He should continue on his current dose of Antivert. For headache management he may benefit from a Medrol Dosepak prado at as needed. We have discussed all of his clinical and test results today with the patient and his at bedside. All other questions are answered. He may follow-up in the outpatient neurology clinic in 3-4 weeks. His overall prognosis at this time remains guarded.
--- NOTE | 2016-10-07 20:02 | P.DS ---
Providers Date of admission: 10/04/16 15:04 Expected date of discharge: 10/07/16 Attending physician: Demetra Ji Consults: 10/06/16 08:00 Consult Physician Urgent Consulting Provider: Rich Horan Consult Reason/Comments: right orbital blowout fracture and vertigo. Do you want consulting provider notified?: Yes Primary care physician: Stated None Hospital Course: Hospital course Dizziness 41-year-old gentleman is admitted to the hospital with sudden onset dizziness over week ago. The dizziness is intermittent in nature which is exacerbated with movements of the head. Patient denies having any upper respiratory type of symptoms prior to admission. Patient does complain of a headache that has been severe in nature. Patient complains of change in vision however it has been chronic. Patient has had a previous history of a right orbital fracture after a trauma and underwent reconstruction. Patient has had some change in vision since then. Day of discharge Improved. Continues to have mild headaches - Exam Physical exam Abdomen soft nontender no organomegaly Heart S1 and S2 heart regular rate and rhythm no murmurs appreciated Lungs good air entry clear to auscultation Neuro no focal motor or sensory deficits noted. Cranial nerves II-12 intact. Reproducible vertigo on head movements. No nystagmus appreciated. Strength is 5 out of 5 in all extremities General in no acute distress alert oriented 3 DC Diagnosis #1 peripheral vertigo secondary to vestibular neuronitis #2 nonspecific headaches unknown etiology #3 history of right orbital fracture #4 history of a previous maxillary fracture #5 poor peripheral vision DC home on Indocin, medrol dose pack, antivert Plan - Discharge Summary New Discharge Prescriptions: Indomethacin [Indocin] 50 mg PO BID #12 capsule Meclizine [Antivert] 12.5 mg PO Q8HR #20 tablet Ondansetron HCl [Zofran] 4 mg PO Q8H #20 tablet methylPREDNISolone [Medrol Dose Pack] 4 mg PO DIRECTED #1 pack Discharge Medication List Melatonin 3 mg PO HS PRN 10/04/16 [History] Omeprazole 20 mg PO DAILY 10/04/16 [History] Indomethacin [Indocin] 50 mg PO BID #12 capsule 10/07/16 [Rx] Meclizine [Antivert] 12.5 mg PO Q8HR #20 tablet 10/07/16 [Rx] Ondansetron HCl [Zofran] 4 mg PO Q8H #20 tablet 10/07/16 [Rx] methylPREDNISolone [Medrol Dose Pack] 4 mg PO DIRECTED #1 pack 10/07/16 [Rx] Follow up Appointment(s)/Referral(s): Sagar Wagner MD [REFERRING] - 1 Week Deysi Soriano MD [STAFF PHYSICIAN] - 1 Week Rich Horan DO [Doctor of Osteopathic Medicine] - 1 Week None,Stated [Primary Care Provider] - 1-2 days Activity/Diet/Wound Care/Special Instructions: To whomsoever it may concern Mr Chatman was admitted to the hospital with dizziness secondary to vestibular neuronitis. He was in the hospital from 10/04/2015 - he is recommended to go back to work on 10/11/2015. Thank you Alonzo Jo MD Discharge Disposition: HOME SELF-CARE
== END 2016-10-07 18:00 | disposition home or self-care (01) ==
LOC: EC 11:50 → INTOOBSV 15:04 → 4MS4W 15:04 → 3OBS 15:20
PROVIDERS: ADMIT Internal Medicine; ATTEND Internal Medicine
DX: H81.20 Vestibular neuronitis, unspecified ear (principal); H81.399 Other peripheral vertigo, unspecified ear; R55 Syncope and collapse; R51 Headache; R11.2 Nausea with vomiting, unspecified; M45.9 Ankylosing spondylitis of unspecified sites in spine; H53.8 Other visual disturbances; F17.200 Nicotine dependence, unspecified, uncomplicated; F12.90 Cannabis use, unspecified, uncomplicated; Z79.899 Other long term (current) drug therapy; Z88.6 Allergy status to analgesic agent
CPT/HCPCS: 99285; 96374; 96375; 96361 ×3; 36415; 95816; 93005; 80053; 82550; 82553; 83735; 84484; 85025; 85610; 85730; 81003; 71020; 70496; 70450; 70498; 70553; G0378 ×4; S4990 ×4; S0183; J2270 ×2; J2765; J2930; Q9967; J2405 ×2; J1885 ×3; J1170 ×3; A9577

== ENCOUNTER → 2016-10-20 | Outpatient (CLI) | payer BC ==
--- NOTE | 2016-10-25 11:43 | ENG ---
DATE OF SERVICE: VNG INDICATIONS: Vertigo and dizziness in a 41 year old male which began one month ago, sudden onset, constant. Can be made worse by any head or neck body position movements. Denies difficulty with hearing and no tinnitus, but pressure in both ears. Headaches also. FINDINGS: Saccades shows mildly abnormal saccade peak velocities and borderline saccade accuracies and intact saccade latencies. Tracking shows multiple break-ups at both faster and slower speeds. Gaze with fixation shows no nystagmus in any of the directions of gaze including centrally with vision denied. Opticokinetic nystagmus shows no asymmetry. Static position testing in 6 positions first with eyes opened and then with vision denied shows no nystagmus. Mimi-Hallpike maneuvers are positive for right benign positional vertigo. Caloric testing shows bilateral caloric weakness. Fixation index negative. IMPRESSION: 1. [place]-Hallpike maneuvers positive for right benign positional vertigo. There are abnormalities of saccades and tracking which favor additional central nervous system dysfunction. The patient has bilateral caloric weakness, which negates the caloric testing. Clinical correlation advised.
== END | disposition home or self-care (01) ==
LOC: NEUROMAIN 09:04
PROVIDERS: ATTEND Otolaryngology
DX: H81.11 Benign paroxysmal vertigo, right ear (principal); R53.1 Weakness; R94.8 Abnormal results of function studies of other organs and systems
CPT/HCPCS: 92537; 92540

== ENCOUNTER → 2018-02-07 | Outpatient (CLI) | payer BC ==
[2018-02-10 14:25] LABS: IgG - CSF 1.5 mg/dL (0.0 - 3.4); IgG/Albumin Index (CSF) 0.49 (0.00 - 0.77); Immunoglobulin G 665 mg/dL (700 - 1600)
== END | disposition home or self-care (01) ==
LOC: LABWHC1 15:05
PROVIDERS: ATTEND Nurse Practitioner Acute Care
DX: R42 Dizziness and giddiness (principal); R90.82 White matter disease, unspecified
CPT/HCPCS: 36415; 82040; 82042; 82784; 83916

== ENCOUNTER 2023-01-10 14:25 | Emergency (ER) | payer BC, OTHER ==
--- NOTE | 2023-01-10 17:21 | ED ---
Back Pain HPI - General Chief Complaint: Neuro Symptoms/Deficit Stated Complaint: R facial drooping and back pain Time Seen by Provider: 01/10/23 16:20 Source: patient, RN notes reviewed, old records reviewed Limitations: no limitations - History of Present Illness Initial Comments: This is a 47 male to the ED for revaluation of sciatica pain, patient has history of the same and is seeing a chiropractor for outpatient management. He did have a long weekend and may have resulted in worse pain than normal. Patient has worse pain than normal currently, no new trauma and no neurological symptoms. Patient doses state that he needs a work note. MD Complaint: back pain -: minutes(s) Similar Symptoms Previously: Yes Place: home, work Severity: mild Severity scale (1-10): 3 Quality: sharp, aching Consistency: intermittent Improves With: immobilization Worsens With: movement, walking Context: while lifting, turning/twisting Associated Symptoms: denies other symptoms - Related Data Home Medications Medication Instructions Recorded Confirmed Omeprazole 20 mg PO DAILY 10/04/16 01/10/23 Allergies Allergy/AdvReac Type Severity Reaction Status Date / Time aspirin Allergy Rash/Hives Verified 01/10/23 16:45 Review of Systems ROS Statement: Those systems with pertinent positive or pertinent negative responses have been documented in the HPI. ROS Other: All systems not noted in ROS Statement are negative. Past Medical History Past Medical History: No Reported History History of Any Multi-Drug Resistant Organisms: None Reported Past Surgical History: No Surgical Hx Reported Additional Past Surgical History / Comment(s): orbital reconstruction, pneumothorax with chest tube placement Past Anesthesia/Blood Transfusion Reactions: No Reported Reaction Past Psychological History: Depression Smoking Status: Current every day smoker Past Alcohol Use History: None Reported Past Drug Use History: None Reported, Marijuana - Past Family History Mother Family Medical History: No Reported History General Exam - General Exam Comments Initial Comments: no focal neurological deficits are found Limitations: no limitations General appearance: alert, in no apparent distress Head exam: Present: atraumatic, normocephalic, normal inspection Eye exam: Present: normal appearance, PERRL, EOMI. Absent: scleral icterus, conjunctival injection, periorbital swelling ENT exam: Present: normal exam, mucous membranes moist Neck exam: Present: normal inspection. Absent: tenderness, meningismus, lymphadenopathy Respiratory exam: Present: normal lung sounds bilaterally. Absent: respiratory distress, wheezes, rales, rhonchi, stridor Cardiovascular Exam: Present: regular rate, normal rhythm, normal heart sounds. Absent: systolic murmur, diastolic murmur, rubs, gallop, clicks GI/Abdominal exam: Present: soft, normal bowel sounds. Absent: distended, tenderness, guarding, rebound, rigid Extremities exam: Present: normal inspection, full ROM, normal capillary refill. Absent: tenderness, pedal edema, joint swelling, calf tenderness Back exam: Present: normal inspection Neurological exam: Present: alert, oriented X3, CN II-XII intact Psychiatric exam: Present: normal affect, normal mood Skin exam: Present: warm, dry, intact, normal color. Absent: rash Course Vital Signs 01/10/23 14:31 Temperature 98.0 F Pulse Rate 98 Respiratory 18 Rate Blood Pressure 122/74 O2 Sat by Pulse 97 Oximetry - Reevaluation(s) Reevaluation #1: 01/10/23 17:19 medical is reviewed Reevaluation #2: 01/10/23 17:19 pataient symptoms are imroved rsesolved and is able to ambulate Reevaluation #3: 01/10/23 17:19 patient informed of results and questions are answered Medical Decision Making - Medical Decision Making 47 male to the ED for acute on chronid back pain, patain is currently controlled and he is asking for work note and to be discharged Disposition Clinical Impression: Sciatica, Chronic back pain Disposition: HOME SELF-CARE Condition: Good Instructions (If sedation given, give patient instructions): Lumbar Radiculopathy (ED), Chronic Back Pain (DC), Lower Back Exercises (ED) Is patient prescribed a controlled substance at d/c from ED?: No Referrals: Emeterio Dinh DO [Primary Care Provider] - 1-2 days Time of Disposition: 17:20
[2023-01-10 17:53] VITALS: BP 136/78; PULSE 80; RESP 16; TEMP 97.9
== END 2023-01-10 18:07 | disposition home or self-care (01) ==
LOC: EC 14:25
DX: M54.30 Sciatica, unspecified side (principal); F17.200 Nicotine dependence, unspecified, uncomplicated; Z88.6 Allergy status to analgesic agent
CPT/HCPCS: 99283

== ENCOUNTER → 2024-07-19 | Outpatient (CLI) | payer BC ==
--- NOTE | 2024-07-19 09:45 | XR ---
EXAMINATION TYPE: XR chest 2V DATE OF EXAM: 07/19/2024 7:58 AM CLINICAL INDICATION: Male, 49 years old with history of R05.9 cough; [facility] COMPARISON: None TECHNIQUE: XR chest 2V Frontal view of the chest. FINDINGS: Lungs/Pleura: There is no evidence of pleural effusion, focal consolidation, or pneumothorax. Pulmonary vascularity: Unremarkable. Heart/mediastinum: Cardiomediastinal silhouette is unremarkable. Musculoskeletal: No acute osseous pathology. Other findings: None IMPRESSION: No acute cardiopulmonary disease/process. [facility], , 07/19/2024 9:43 AM
--- NOTE | 2024-07-19 14:56 | US ---
EXAMINATION TYPE: US abdomen complete DATE OF EXAM: 07/19/2024 COMPARISON: CT 11/28/2023 CLINICAL INDICATION: Male, 49 years old with history of R10.84 GENERALIZED ABD PAIN; Umbilical pain x 1 month with nausea and vomiting; Hx HTN TECHNIQUE: Grayscale and color Doppler imaging of the abdomen was performed. FINDINGS: EXAM MEASUREMENTS: Liver Length: 16.4 cm Gallbladder Wall: 0.3 cm CBD: 0.3 cm Spleen: 11.1 cm Right Kidney: 10.4 x 4.7 x 5.1 cm Left Kidney: 11.1 x 4.6 x 5.0 cm IT INSTRUCTOR NOTES: Pancreas: wnl Liver: wnl Gallbladder: wnl Evidence for sonographic Hughes's sign: No CBD: wnl Spleen: wnl Right Kidney: wnl Left Kidney: wnl Upper IVC: wnl Abd Aorta: wnl The liver is homogenous. The intrahepatic portion of the IVC and proximal abdominal aorta are within normal limits. There is no evidence of cholelithiasis. Common bile duct is unremarkable. The visu alized portions of the pancreas are homogenous. The spleen is unremarkable. Kidneys are symmetric a nd free of hydronephrosis. No renal lesions are seen. IMPRESSION: Unremarkable abdominal ultrasound. [facility], , 07/19/2024 12:08 PM
== END | disposition home or self-care (01) ==
LOC: RADUSWWP 07:13
PROVIDERS: ATTEND Internal Medicine
CPT/HCPCS: 71046; 76700